=== PATIENT | female | born 1950 | race Caucasian/White ===

== ENCOUNTER 2018-12-10 15:20 | Inpatient (IN) | payer MEDICARE ==
[2018-12-10] MEDS ORDERED: Diltiazem 125 MG/25 ML ONE (15:36)
[2018-12-10] MEDS ORDERED: Magnesium 2 GM/50 ML BAG (IN WATER) ONE (15:38)
[2018-12-10] MEDS ORDERED: Aspirin Chewable 81 MG TAB ONE (15:38)
[2018-12-10 15:47] LABS: #Basophils 0.1 thou/uL (0.0-0.2); #Eosinphils 0.2 thou/uL (0.0-0.7); #Lymphocytes 2.3 thou/uL (1.20-3.40); #Monocytes 0.6 thou/uL (0.11-0.59); %Basophils 1.3 % (0.0-1.0); %Eosinophils 2.3 % (0.0-10.0); %Lymphocytes 28.4 % (21.0-51.0); %Monocytes 7.3 % (0.0-10.0); %Neutrophils 60.7 % (42.0-75.0); Mean Corpuscular HGB CONC 33.1 g/dL (32.0-36.0); Mean Corpuscular Hemoglobin 31.4 pg (27.0-31.0); Mean Platelet Volume 7.7 fL (7.4-10.4); Platelet Count 281 thou/uL (130-400); RBC Distribution Width 12.2 % (11.5-14.5); Red Blood Cell (RBC) Count 4.47 mill/uL (4.20-5.40); White Blood Cell (WBC) Count 8.2 thou/uL (4.8-10.8)
[2018-12-10 15:53] LABS: INR-International Normal Ratio 1.2; PTT 33.9 SEC (22.9-36.1); Prothrombin Time 14.8 SEC (12.0-14.7)
--- NOTE | 2018-12-10 16:00 | RAD ---
Chest one view HISTORY: Chest pain. FINDINGS: No comparison. Cardiac silhouette is magnified and upper limits of normal in size. Pulmonar y vasculature upper limits of normal. Mediastinum is midline. Mild linear ptosis of the right lung base with elevation right hemidiaphragm. Cause is not evident. No lobar consolidation or evidence of pneumothorax. IMPRESSION: Chronic-type findings as detailed above. No active cardiopulmonary abnormalities are demo nstrated.
[2018-12-10 16:06] LABS: ALT (SGPT) 13 U/L (8-55); AST (SGOT) 20 U/L (5-34); Albumin 4.1 g/dL (3.4-4.8); Alkaline Phosphatase 121 U/L (40-150); Anion Gap 11 mmol/L (10-20); BUN (Urea Nitrogen) 9 mg/dL (9.8-20.1); Bilirubin, Total 0.9 mg/dL (0.2-1.2); CK (CPK) 220 U/L (29-168); Calc. Creatinine Clearance 0 mL/min (70-130); Calcium 9.9 mg/dL (7.8-10.44); Carbon Dioxide 29 mmol/L (23-31); Chloride 96 mmol/L (98-107); Estimated GFR-MDRD 79; Globulin 3.2 g/dL (2.4-3.5); Glucose 115 mg/dL (80-115); Lipase 11 U/L (8-78); Potassium 3.4 mmol/L (3.5-5.1); Protein, Total 7.3 g/dL (6.0-8.3); Sodium 133 mmol/L (136-145)
[2018-12-10] MEDS ORDERED: Ondansetron PF 4 MG/2 ML Vial IVP PRN (17:15)
[2018-12-10] MEDS ORDERED: Zolpidem Tartrate 5 MG TAB PO PRN (17:15)
--- NOTE | 2018-12-10 17:24 | PDOC.EVN ---
Event Note - Event Note Event Note: H&P DICTATION #[id number]
[2018-12-10 19:50] LABS: Troponin I Less than 0.010 ng/mL (< 0.028)
[2018-12-10 20:49] VITALS: BMI 33.6
[2018-12-10] MEDS: Metoprolol Tartrate 50 MG TAB PO SCH (21:01)
[2018-12-10] MEDS: Enoxaparin Sodium 100 MG/ML SYRINGE SC SCH (21:02)
[2018-12-10] MEDS: Acetaminophen 325 MG TAB PO PRN (23:19)
--- NOTE | 2018-12-11 00:14 | HP ---
CHIEF COMPLAINT: Sent in by county treasurer. HISTORY OF PRESENT ILLNESS: This is a 68-year-old female who recently saw her county treasurer today and was found to be in atrial fibrillation, persistent. She was in [place] for the of her granddaughter that is when she was diagnosed with atrial fibrillation. The patient comes in, sent from her county treasurer's office. The patient apparently had an echocardiogram done at the office as well as recent stress test a week ago. The patient denies any symptoms or complaints. No nausea, vomiting, diarrhea, constipation, chest pain, fevers, chills, or shortness of breath. The patient does admit to occasional palpitations, which are now better. The patient states that she otherwise has no other complaints. No alleviating or aggravating factors. No other associated symptoms or complaints. The patient is seen and examined in the ER, family at bedside. All questions answered. REVIEW OF SYSTEMS: All systems reviewed, pertinent positives in HPI. ALLERGIES: NO KNOWN DRUG ALLERGIES. PAST MEDICAL HISTORY: Hypothyroidism, hypertension, and paroxysmal atrial fibrillation. FAMILY HISTORY: Hypothyroidism and atrial fibrillation. SOCIAL HISTORY: Nondrinker, nonsmoker. PHYSICAL EXAMINATION: VITAL SIGNS: Blood pressure 128/88, heart rate of 96, temperature of 98, O2 saturations 100% on room air. GENERAL: The patient lying in bed, in no acute discomfort. HEENT: Pupils are equal, round, and reactive to light and accommodation. Extraocular muscles are intact. Oral cavity is moist and pink. NECK: Supple, mobile, nontender. Thyroid appreciated. PULMONARY: Clear to auscultation bilaterally. No rales, rhonchi, or wheezing appreciated. CARDIOVASCULAR: Regular rate and rhythm. S1 and S2. No murmurs, rubs, or gallops appreciated. ABDOMEN: Positive bowel sounds. Soft, nontender, nondistended. EXTREMITIES: Trace pitting edema. 2+ peripheral pulses. NEUROLOGIC: Cranial nerves 2 through 12 intact. No loss of motor or sensory function. LABORATORY DATA: Reviewed. EKG reviewed. ASSESSMENT AND PLAN: 1. Persistent paroxysmal atrial fibrillation. 2. Hypertension. 3. Hypothyroidism. PLAN: At this point in time, we will admit the patient to internal medicine team to inpatient setting. Consult Cardiology. The patient has had a significant amount of a recent cardiac workup, so we will hold off on any repeat studies for now. We will repeat a TSH as well as her troponin is to be trended. We will start the patient on full-dose Lovenox. The patient states that she is on a blood thinner that she cannot remember the name of, so for now, we will do Lovenox 1 mg/kg treatment dose for atrial fibrillation. Consult Cardiology. We will await input on Cardizem drip, which was required. For now, we will continue the Cardizem drip. We will likely switch over tomorrow if able to remove off the drip. We will also start the patient on metoprolol 50 b.i.d. to be held if systolic less than 120 or heart rate less than 60. The patient's case and plan were discussed with the patient and family at length. They understood and agreed with this plan. We will resume home medications once they are uploaded. Job ID: [id number]
[2018-12-11] MEDS ORDERED: Cyclobenzaprine 10 MG TAB PO SCH (04:45)
[2018-12-11 06:05] LABS: #Basophils 0.1 thou/uL (0.0-0.2); #Eosinphils 0.3 thou/uL (0.0-0.7); #Lymphocytes 2.5 thou/uL (1.20-3.40); #Monocytes 0.8 thou/uL (0.11-0.59); %Basophils 1.5 % (0.0-1.0); %Lymphocytes 37.2 % (21.0-51.0); %Monocytes 12.1 % (0.0-10.0); %Neutrophils 45.3 % (42.0-75.0); Mean Corpuscular HGB CONC 33.1 g/dL (32.0-36.0); Mean Corpuscular Hemoglobin 32.5 pg (27.0-31.0); Mean Corpuscular Volume 98.3 fL (78.0-98.0); Mean Platelet Volume 7.6 fL (7.4-10.4); Platelet Count 248 thou/uL (130-400); RBC Distribution Width 12.1 % (11.5-14.5); White Blood Cell (WBC) Count 6.7 thou/uL (4.8-10.8)
[2018-12-11 06:18] LABS: Anion Gap 12 mmol/L (10-20); BUN (Urea Nitrogen) 13 mg/dL (9.8-20.1); Calc. Creatinine Clearance 109 mL/min (70-130); Calcium 9.3 mg/dL (7.8-10.44); Carbon Dioxide 26 mmol/L (23-31); Chloride 101 mmol/L (98-107); Estimated GFR-MDRD 86; Glucose 108 mg/dL (80-115); Potassium 3.1 mmol/L (3.5-5.1); Sodium 136 mmol/L (136-145)
[2018-12-11 06:38] LABS: Troponin I Less than 0.010 ng/mL (< 0.028)
[2018-12-11] MEDS: Enoxaparin Sodium 100 MG/ML SYRINGE SC SCH (09:24)
[2018-12-11] MEDS: Metoprolol Tartrate 50 MG TAB PO SCH (09:25)
[2018-12-11] MEDS: Acetaminophen 325 MG TAB PO PRN (09:31)
--- NOTE | 2018-12-11 18:21 | CON ---
DATE OF CONSULTATION: REASON FOR CONSULTATION: Atrial fibrillation. HISTORY OF PRESENT ILLNESS: Ms. Christiansen is a pleasant 68-year-old woman, who was seen and evaluated in the past. She has a history of paroxysmal atrial fibrillation. She recently presented to the office with atrial fibrillation with heart rate in the 110s to 120s. I was out of the office and was instructed by my staff to proceed to the emergency room. She was placed on IV Cardizem briefly. This was discontinued. Heart rate has been controlled on p.o. beta-celeste therapy. Eliquis has been restarted. CURRENT MEDICATIONS: 1. Propranolol. 2. Metoprolol 300 mg q.a.m. 3. Levothyroxine. 4. Fluoxetine. 5. Pantoprazole. 6. Hydrochlorothiazide. 7. Vitamin B12. 8. Potassium. 9. Gabapentin. 10. Calcium. 11. Cyclobenzaprine. PAST MEDICAL HISTORY: Paroxysmal atrial fibrillation, hypertension. PAST SURGICAL HISTORY: Hysterectomy, cholecystectomy, back surgery, knee surgery, neck surgery, hand surgery, . SOCIAL HISTORY: Positive for tobacco use. REVIEW OF SYSTEMS: A 10-point review of systems is reviewed and as above, otherwise negative. PHYSICAL EXAMINATION: GENERAL: Patient is a pleasant woman who is in no acute distress. The patient appears their stated age. VITAL SIGNS: Blood pressure 140/72, pulse 80, temperature 97.6. NEUROLOGIC: The patient is alert and oriented x3 with no focal neurologic deficits. HEENT: Sclerae without icterus. Mouth has moist mucous membranes with normal pallor. NECK: No JVD. Carotid upstroke brisk. No bruits bilaterally. LUNGS: Clear to auscultation with unlabored respirations. BACK: No scoliosis or kyphosis. CARDIAC: Irregularly irregular. ABDOMEN: Soft, nontender, nondistended. No peritoneal signs present. No hepatosplenomegaly. No abnormal striae. EXTREMITIES: 2+ femoral and 2+ dorsalis pedis pulses. No cyanosis, clubbing, or edema. SKIN: No gross abnormalities. PERTINENT LABORATORY DATA: CK and troponin negative. Creatinine 0.68. TSH is 0.0067. IMPRESSION: 1. Atrial fibrillation. 2. Hyperthyroidism. RECOMMENDATIONS: We will resume Eliquis. Heart rate is controlled on metoprolol. Recommendations on hyperthyroidism per primary team and primary physician. Otherwise from my standpoint, given that her LVEF has been normal in addition to rate control. We would recommend close outpatient followup. I have no further recommendations. Job ID: [id number]
--- NOTE | 2018-12-11 18:21 | PDOC.EVN ---
Event Note - Event Note Event Note: pt takes 0.125mg of synthroid. Her TSh is low will decrease her dose to 100mcg and she has been asked to follow up with her primary.
[2018-12-11 18:47] VITALS: BP 140/78; TEMP 98.2
[2018-12-11] MEDS ORDERED: Apixaban 5 MG TAB PO SCH (21:00)
--- NOTE | 2018-12-12 03:21 | DIS ---
DATE OF ADMISSION: 12/10/2018 DATE OF DISCHARGE: 12/11/2018 DISCHARGE DIAGNOSES: As of the following; 1. Persistent paroxysmal atrial fibrillation. 2. Hypertension. 3. Hypothyroidism. HOSPITAL COURSE: The patient is a very pleasant 68-year-old female who was actually sent to the hospital by her green building energy engineer and was found to be in atrial fibrillation with rapid ventricular response. She recently from Cardiology had an echocardiogram done and also a stress test which apparently was normal. The patient prior to coming to the hospital was already started on Eliquis, however, she was not on any kind of rate-controlling agent. The patient in the hospital started initially on Cardizem drip which was changed to oral metoprolol, which improved her heart rate. The patient was seen by Cardiology, no further intervention. The patient clinically has been stable. She will be discharged home. She will follow up with Cardiology as outpatient. DISCHARGE MEDICATIONS: Her home medications on discharge will be as of the following; 1. New prescription metoprolol 50 b.i.d. 2. Eliquis 5 mg b.i.d. 3. Lisinopril 10 mg daily. 4. Hydrochlorothiazide 25 daily. 5. Protonix 40 mg daily. 6. Ropinirole 0.5 daily. 7. Colace 100 mg daily. 8. Flexeril 5 mg t.i.d. p.r.n. 9. Synthroid 0.125 mg daily. 10. Potassium p.o. daily. 11. Cymbalta 60 mg daily. 12. Gabapentin 300 mg daily. PHYSICAL EXAMINATION: VITAL SIGNS: 97.9, 72, 95% on room air, 16, 140/72. GENERAL: She is awake, alert, and oriented x3. Does not appear in distress. CV: S1, S2 present. No murmurs, rubs, or gallops. ABDOMEN: Soft and nontender. Bowel sounds are present x2. EXTREMITIES: No edema. Pedal pulses are present x2. DISCHARGE INSTRUCTIONS: She will be discharged home. She will follow up with her primary care doctor and also with Cardiology as outpatient. Also recommend her to follow up with her primary care doctor. Job ID: [id number]
== END 2018-12-11 20:47 | disposition home or self-care (01) | DRG 310 ==
LOC: ERS 15:20 → 2NO 20:01
PROVIDERS: ADMIT Internal Medicine; ATTEND Internal Medicine
DX: I48.0 Paroxysmal atrial fibrillation (principal); E03.9 Hypothyroidism, unspecified; I10 Essential (primary) hypertension; Z79.899 Other long term (current) drug therapy
CPT/HCPCS: 36415; 71045; 80048; 80053; 82550; 83690; 83880; 84443; 84484; 85025; 85610; 85730; 93005; 94760; J1650; J3475

== ENCOUNTER 2019-07-01 19:30 | Outpatient (CLI) | payer MEDICARE | END 2019-07-01 19:31 | disposition home or self-care (01) | LOC: SLEEPLAB 19:30 | PROVIDERS: ATTEND Internal Medicine Critical Care Medicine | DX: G47.33 Obstructive sleep apnea (adult) (pediatric) (principal); I21.9 Acute myocardial infarction, unspecified; G47.10 Hypersomnia, unspecified; R25.9 Unspecified abnormal involuntary movements | CPT/HCPCS: 95810 ==

== ENCOUNTER 2019-07-24 08:53 | Outpatient (CLI) | payer MEDICARE ==
--- NOTE | 2019-07-24 10:25 | RAD ---
PA AND LATERAL CHEST: HISTORY: Dyspnea. COMPARISON: 12/10/2018 FINDINGS: There is continued elevation of the right hemidiaphragm. The heart size is at the upper limits of nor mal. The aorta is tortuous. There is mild prominence of the pulmonary vascularity. No lobar consolida tion, pneumothoraces or pleural effusions are seen. There are postop changes in the cervical and thor acolumbar spine. POS: JENNIFER
== END 2019-07-24 08:54 | disposition home or self-care (01) ==
LOC: RAD 08:53
PROVIDERS: ATTEND Internal Medicine Critical Care Medicine
DX: R06.00 Dyspnea, unspecified (principal)
CPT/HCPCS: 71046

== ENCOUNTER 2019-09-16 07:04 | Day surgery (SDC) | payer MEDICARE ==
[2019-09-13 13:19] VITALS: BMI 31.8
[2019-09-16] MEDS ORDERED: Diazepam 5 MG TAB ONE (07:15)
[2019-09-16] MEDS ORDERED: Verapamil 5 MG/2 ML VIAL ONE (07:58)
[2019-09-16] MEDS ORDERED: Lidocaine 1% (PF) 30 ML VIAL ONE (07:58)
[2019-09-16] MEDS ORDERED: Heparin (Artline) 1,000 ML ONE (07:58)
[2019-09-16] MEDS ORDERED: Nitroglycerin 100MG/250ML BOT 250 ML ONE (07:58)
[2019-09-16] MEDS ORDERED: Heparin 10,000 UNITS/1 ML VIAL ONE (07:58)
[2019-09-16] MEDS ORDERED: hydrALAZINE 20 MG/ML VIAL ONE (08:41)
[2019-09-16] MEDS ORDERED: Morphine 2 MG/ML SYRINGE ONE (09:53)
[2019-09-16] MEDS ORDERED: Nitroglycerin 0.4 MG TAB (25 Tab Bottle) ONE (10:30)
[2019-09-16] MEDS ORDERED: Iopamidol 370 76% 100 ML VIAL ONE (15:15)
== END 2019-09-16 13:05 | disposition home or self-care (01) ==
LOC: CCL 07:04
PROVIDERS: ATTEND Internal Medicine Cardiovascular Disease
PROC: 4A023N7 Measurement of Cardiac Sampling and Pressure, Left Heart, Percutaneous Approach (ICD-10-PCS; principal; 2019-09-16)
PROC: B2111ZZ Fluoroscopy of Multiple Coronary Arteries using Low Osmolar Contrast (ICD-10-PCS; 2019-09-16)
DX: R07.9 Chest pain, unspecified (principal); R94.39 Abnormal result of other cardiovascular function study; I10 Essential (primary) hypertension; I48.91 Unspecified atrial fibrillation; I83.813 Varicose veins of bilateral lower extremities with pain; F17.210 Nicotine dependence, cigarettes, uncomplicated; Z79.01 Long term (current) use of anticoagulants; Z79.899 Other long term (current) drug therapy
CPT/HCPCS: 93005; 93458; C1769; J0360; J1644; J2001; J2270; Q9967

== ENCOUNTER 2020-02-26 06:23 | Outpatient (CLI) | payer MEDICARE, OTHER ==
[2020-02-27 14:39] LABS: SARS-CoV-2 MS2 Positive; SARS-CoV-2 N Gene Negative; SARS-CoV-2 S Gene Negative; SARS-CoV-2 orf1ab Negative
== END 2020-02-26 06:24 | disposition home or self-care (01) ==
LOC: LABBT 06:23
PROVIDERS: ATTEND Internal Medicine Cardiovascular Disease
DX: Z01.812 Encounter for preprocedural laboratory examination (principal); Z11.59 Encounter for screening for other viral diseases
CPT/HCPCS: 87635; U0003

== ENCOUNTER 2020-03-02 10:03 | Day surgery (SDC) | payer MEDICARE ==
[2020-02-24 15:33] VITALS: BMI 38.9
[~2020-03-02 10:03] MED LIST: Glycopyrrolate 0.2 MG/ML 5 ML SYRINGE ONE; Lidocaine 1% PF 5 ML VIAL ONE; PROPOFOL 200 MG/20 ML VIAL ONE
--- NOTE | 2020-03-03 14:05 | OP ---
DATE OF PROCEDURE: 03/02/2020 PREPROCEDURE DIAGNOSIS: Atrial fibrillation. POSTPROCEDURE DIAGNOSIS: Sinus rhythm. PROCEDURE PERFORMED: Synchronized cardioversion. Conscious sedation performed with propofol. Anesthesia was present during the procedure. The patient underwent successful synchronized cardioversion at 150, 200 joules. IMPRESSION: Successful synchronized cardioversion. Job ID: [id number]
== END 2020-03-02 13:25 | disposition home or self-care (01) ==
LOC: CCL 10:03
PROVIDERS: ATTEND Internal Medicine Cardiovascular Disease
PROC: 5A2204Z Restoration of Cardiac Rhythm, Single (ICD-10-PCS; principal; 2020-03-02)
DX: I48.19 Other persistent atrial fibrillation (principal); G25.81 Restless legs syndrome; E03.9 Hypothyroidism, unspecified; F17.210 Nicotine dependence, cigarettes, uncomplicated; Z79.01 Long term (current) use of anticoagulants; Z79.899 Other long term (current) drug therapy; Z98.1 Arthrodesis status
CPT/HCPCS: 92960; 93005; 93010; J2704

== ENCOUNTER 2020-04-23 08:53 | Outpatient (CLI) | payer MEDICARE, OTHER ==
[2020-04-23 18:01] LABS: Hemoglobin 13.1 g/dL (12.0-16.0); Mean Corpuscular HGB CONC 32.4 g/dL (32.0-36.0); Mean Corpuscular Hemoglobin 29.3 pg (27.0-31.0); Mean Corpuscular Volume 90.4 fL (78.0-98.0); Platelet Count 326 thou/uL (130-400); RBC Distribution Width 13.6 % (11.5-14.5); Red Blood Cell (RBC) Count 4.45 mill/uL (4.20-5.40); White Blood Cell (WBC) Count 8.5 thou/uL (4.8-10.8)
[2020-04-23 18:08] LABS: PTT 32.3 sec (22.9-36.1); Prothrombin Time 12.8 sec (12.0-14.7)
[2020-04-23 19:24] LABS: Anion Gap 16 mmol/L (10-20); BUN (Urea Nitrogen) 12 mg/dL (9.8-20.1); Calc. Creatinine Clearance 0 mL/min (70-130); Calcium 9.9 mg/dL (7.8-10.44); Carbon Dioxide 27 mmol/L (23-31); Chloride 98 mmol/L (98-107); Estimated GFR-MDRD 69; Potassium 4.4 mmol/L (3.5-5.1); Sodium 137 mmol/L (136-145)
[2020-04-23 19:28] LABS: Glucose 95 mg/dL (83-110)
[2020-04-24 12:45] LABS: SARS-CoV-2 MS2 Positive; SARS-CoV-2 N Gene Negative; SARS-CoV-2 S Gene Negative; SARS-CoV-2 by NAA Not Detected (NotDetected); SARS-CoV-2 orf1ab Negative
--- NOTE | 2020-04-27 15:32 | EKG ---
Test Reason : Blood Pressure : / mmHG Vent. Rate : 081 BPM Atrial Rate : 081 BPM P-R Int : 000 ms QRS Dur : 084 ms QT Int : 382 ms P-R-T Axes : 000 -13 021 degrees QTc Int : 443 ms Atrial fibrillation Abnormal ECG When compared with ECG of 02-MAR-2020 12:21, (Unconfirmed) Atrial fibrillation has replaced Sinus rhythm Vent. rate has increased BY 29 BPM Confirmed by LIZ CA M.D. ([id number]) on 04/27/2020 3:32:08 PM Referred By: [facility] Confirmed By:LIZ CA M.D.
== END 2020-04-23 08:54 | disposition home or self-care (01) ==
LOC: LABBT 08:53
PROVIDERS: ATTEND Internal Medicine Cardiovascular Disease
DX: Z01.818 Encounter for other preprocedural examination (principal); Z20.828 Contact with and (suspected) exposure to other viral communicable diseases
CPT/HCPCS: 80048; 85027; 85610; 85730; 93005; U0003; 87635; 93010

== ENCOUNTER 2020-04-27 08:27 | Observation (INO) | payer MEDICARE ==
[2020-04-23 12:51] VITALS: BMI 36.3
[~2020-04-27 08:27] MED LIST changes: -Lidocaine 1% PF 5 ML VIAL ONE; -PROPOFOL 200 MG/20 ML VIAL ONE
[2020-04-27] MEDS ORDERED: PROPOFOL 40 ML ONE (10:47)
[2020-04-27] MEDS ORDERED: Heparin 25,000 units/D5W 500 ML ONE (11:40)
[2020-04-27] MEDS ORDERED: Heparin 10,000 UNITS/ 10 ML VIAL ONE ×2 (11:40→12:45)
[2020-04-27] MEDS ORDERED: Lidocaine 1% (PF) 30 ML VIAL ONE (11:41)
[2020-04-27] MEDS ORDERED: Fentanyl 100 MCG/2 ML VIAL ONE ×3 (11:58→18:06)
[2020-04-27] MEDS ORDERED: Dexamethasone 20 MG/5 ML VIAL ONE (11:59)
[2020-04-27] MEDS ORDERED: Glycopyrrolate 0.2 MG/ML 5 ML SYRINGE ONE (11:59)
[2020-04-27] MEDS ORDERED: Rocuronium Bromide 10 MG/ML (10ML VIAL) ONE (11:59)
[2020-04-27] MEDS ORDERED: Ondansetron PF 4 MG/2 ML Vial ONE (11:59)
[2020-04-27] MEDS ORDERED: PHENYLEPHRINE-NS 100 MCG/ML 10 ML SYRINGE ONE ×2 (11:59→15:17)
[2020-04-27] MEDS ORDERED: Lidocaine 1% PF 5 ML VIAL ONE (11:59)
[2020-04-27] MEDS ORDERED: PROPOFOL 200 MG/20 ML VIAL ONE (11:59)
[2020-04-27] MEDS ORDERED: Isoproterenol 0.2 MG/1 ML AMP ONE (13:58)
[2020-04-27] MEDS ORDERED: Amiodarone 150 MG/3 ML VIAL ONE (15:19)
[2020-04-27] MEDS ORDERED: Protamine Sulfate 50 MG/5 ML VIAL ONE (15:32)
[2020-04-27] MEDS ORDERED: Ketorolac Tromethamine 30 MG/ML VIAL ONE (16:37)
[2020-04-27] MEDS ORDERED: Acetaminophen/Codeine 30-300mg Tablet PO PRN ×2 (18:30)
--- NOTE | 2020-04-27 19:35 | RAD ---
PORTABLE CHEST: Date: 04-27-2020 PROVIDED CLINICAL HISTORY: Post ablation FINDINGS: Comparison is made with a study dated 07-24-19. The cardiac silhouette appears enlarged. There is elevation of the right hemidiaphragm which appears more conspicuous than on prior. The supine nature of the examination is not sensitive for pleural flu id or pneumothorax, without evidence for such. No focal consolidation is evident. IMPRESSION: Elevation of the right hemidiaphragm is more conspicuous than on prior. Cardiomegaly. POS: FLAKITA
[2020-04-27] MEDS: Ketorolac Tromethamine 30 MG/ML VIAL IVP PRN (20:02)
--- NOTE | 2020-04-27 20:02 | OP ---
DATE OF PROCEDURE: 04/27/2020 PROCEDURE PERFORMED: Electrophysiology study and radiofrequency ablation. REASON FOR PROCEDURE: Ms. Christiansen is a 69-year-old female with prior history of persistent atrial fibrillation, resistant to initiated flecainide therapy. She is here for a planned pulmonary venous isolation and ablation procedure. She has been well anticoagulated with NOAC medication without fail over last month. DESCRIPTION OF PROCEDURE: The patient received general anesthesia by Anesthesia specialist. After adequate level of sedation achieved, both femoral venous areas were prepped, draped, and accessed under ultrasound guidance x2. On the left side, an 11-[place]izen [place] sheath was used to advance an intracardiac echocardiogram probe to the right atrium, which was in turn used to monitor the transeptal puncture, pericardial space, and the catheter manipulation throughout the procedure. Also, through the left femoral vein, a Preface sheath was used to advance a Duo-Deca diagnostic catheter into the right atrium and CS position. From the right femoral vein, two 8-[place]izen [place] short sheaths were initially introduced, through which a ThermoCool SFST catheter was advanced to the right atrium and 3D map of the right atrium was obtained. Following that, IV heparin was administered in bolus and drip fashion and adjusted throughout the case to keep ACT over 350. The short right femoral venous sheaths were exchanged to two SL1 transseptal sheaths, which were used to perform a transseptal puncture with the help of a powered [place] needle under ultrasound and fluoroscopic guidance. The 3D map of the left atrium was obtained with the help of a ThermoCool SFST and a 20-pole Lasso catheter. It was determined that the patient has a left common pulmonary vein, two right-sided pulmonary veins were identified. Standard pulmonary venous isolation was performed, isolating the left common vein in a single nez perce and right pulmonary veins with figure-eight ablation lines. Also a roof and inferoposterior line were also ablated to achieve posterior wall isolation. Throughout the posterior wall crockett, special attention was paid to the esophagus to minimize the heat injury and any heating was met with high-flow irrigation from the ablation catheter. Following this, isolation of posterior wall and all pulmonary veins was achieved despite the patient remained in atrial fibrillation. Further mapping on the inferior wall and the CS roof, significant fractionated potentials were found and further ablation were delivered in these areas, isolating the inferior wall, also ablations were placed over the CS roof. Ablation was performed in the inferior interatrial septum as well. During the case, multiple circuit flutters were seen by overdrive pace mapping. Eventually, these flutters were converted to atrial fibrillation and the patient was cardioverted to sinus rhythm. Further atrial fibrillation/flutter induced with a PAC which appeared to be initiating from the CS 1 and 2 earliest and the radiofrequency ablation was delivered in this area. IV amiodarone was also administered x1 to suppress atrial fibrillation. Moderate atrial scarring was seen with the procedure. At the end of the case, the patient remained in sinus rhythm and rare PACs were seen, and overall, the patient remained stable. Intracardiac echocardiogram probe proved no pericardial space accumulation of fluid and then also the cardiac silhouette did not change on fluoroscopy. The catheter was withdrawn from the left side and IV heparin was stopped and they were reversed with protamine. The long sheaths were exchanged for short sheaths and Vascade closure was performed with a vascular ultrasound guidance in all four femoral venous access site. The patient left the recyclable materials sorter extubated. Following numerical findings were noted. The HV was 54 milliseconds. AV Wenckebach cycle length was 440 milliseconds, on Isuprel. The AV gagan ERP on Isuprel was 400/180 milliseconds. The ventricular pacing from the LV was performed via the ablation catheter, demonstrating no VA conduction. Aberrantly conducted PACs were seen during extrastimuli testing. CONCLUSION: 1. Atrial fibrillation at baseline. 2. Standard pulmonary venous isolation of left common pulmonary vein and two right-sided pulmonary veins were performed. 3. Posterior wall isolation with the roof and inferoposterior line also achieved. 4. Further ablation lesions in the inferior left atrium as well as the inferoseptal area of left atrium were delivered, also over the CS roof extensively. 5. Total of 87 lesions delivered, total duration of 28 minutes and 55 seconds. PLAN: Resume anticoagulation and consider antiarrhythmic agents if recurrent atrial arrhythmias occur. Job ID: [id number]
[2020-04-27] MEDS: Morphine 4 MG/ML VIAL SLOW IVP PRN (20:56)
[2020-04-27] MEDS ORDERED: Rivaroxaban 10 MG TAB PO SCH (21:00)
[2020-04-27] MEDS ORDERED: NYQUIL PO SCH (21:00)
[2020-04-27] MEDS ORDERED: rOPINIRole HCl 0.5 MG TAB PO SCH (21:00)
[2020-04-27] MEDS ORDERED: Famotidine 20 MG TAB PO SCH (21:00)
[2020-04-28] MEDS: Morphine 4 MG/ML VIAL SLOW IVP PRN ×4 (00:33→15:15)
[2020-04-28] MEDS: Cephalexin 250 MG CAP PO SCH ×2 (05:05→10:07)
[2020-04-28] MEDS: Gabapentin 300 MG CAP PO SCH ×3 (05:06→15:15)
[2020-04-28] MEDS: Sucralfate 1 GM TAB PO SCH ×2 (05:06→05:49)
[2020-04-28] MEDS ORDERED: Levothyroxine Sodium 100 MCG TAB PO SCH (06:00)
[2020-04-28] MEDS: Ketorolac Tromethamine 30 MG/ML VIAL IVP PRN (08:12)
[2020-04-28] MEDS ORDERED: Calcium Carbonate 600 MG + Vit D TAB PO SCH (09:00)
[2020-04-28] MEDS ORDERED: Amlodipine 5 MG TAB PO SCH (09:00)
[2020-04-28] MEDS ORDERED: Cyanocobalamin (Vitamin B-12) 1,000 MCG TAB PO SCH (09:00)
[2020-04-28] MEDS ORDERED: Lisinopril 20 MG TAB PO SCH (09:00)
[2020-04-28] MEDS ORDERED: Hydrochlorothiazide 25 MG TAB PO SCH (09:00)
[2020-04-28] MEDS ORDERED: Multivit, Therapeutic 1 TAB PO SCH (09:00)
[2020-04-28] MEDS ORDERED: DULoxetine 60 MG CAP PO SCH (09:00)
[2020-04-28] MEDS ORDERED: Potassium Chloride 10 MEQ TAB PO SCH (09:00)
[2020-04-28] MEDS ORDERED: Lidocaine 1% w/Epinephrine 1:100K 20 ML VIAL IJ SCH (09:43)
[2020-04-28] MEDS ORDERED: Furosemide 40 MG TAB PO SCH (10:00)
[2020-04-28] MEDS ORDERED: Potassium Chloride 20 MEQ TAB PO SCH (10:00)
[2020-04-28] MEDS ORDERED: Sucralfate 1 GM TAB PO SCH (11:30)
[2020-04-28 15:51] VITALS: BP 126/72; TEMP 97.5
[2020-04-29] MEDS ORDERED: Potassium Chloride 20 MEQ TAB PO SCH (08:00)
[2020-04-29] MEDS ORDERED: Furosemide 40 MG TAB PO SCH (09:00)
--- NOTE | 2020-04-30 01:59 | DIS ---
DATE OF ADMISSION: 04/27/2020 DATE OF DISCHARGE: 04/28/2020 DIAGNOSIS: Persistent atrial fibrillation. PROCEDURE PERFORMED: Included electrophysiology study and radiofrequency ablation. HISTORY OF PRESENT ILLNESS: Ms. Christiansen is a 69-year-old woman, with a history of persistent atrial fibrillation refractory to flecainide. She underwent pulmonary venous isolation ablation on 04/27. Successful pulmonary venous isolation of the left common pulmonary vein and two right-sided pulmonary veins in addition to posterior wall isolation and inferior posterior line achieved. Additional lesions placed to the inferior left atrium and inferior septal area of the left atrium. Total ablation 29 minutes. Moderate atrial scarring was seen within the procedure. She was in sinus rhythm at the end of the case. Aberrant conduction of PACs was seen during extrastimuli testing. Ms. Christiansen had some persistent superficial oozing of the left 11-[place] sheaths site overnight and into the morning of the next day. This required subcutaneous lidocaine with epinephrine injection, which quickly terminated the bleeding complication. No further bleeding was seen. There was no evidence of hematoma or deep vessel bleeding complication. She also endorsed some back pain which she has chronically struggled with and some chest discomfort. She denied any shortness of breath, heart racing, palpitations, dizziness, difficulty voiding, nausea or vomiting. Peripheral pulses remained strong. She did have some crackles to the right lung anthony and some trace pedal edema, otherwise exam is stable. She was discharged in stable condition in the afternoon after observing her peripheral pulses and groin sites for 4 hours after the lido with epi injection. Vital signs prior to discharge, 97.5, pulse 88, blood pressure 126/71, respirations 18, and oxygen 94% on room air. DISCHARGE MEDICATIONS: 1. Resuming home medications of Toprol-XL 25 mg daily. 2. Ropinirole 1 mg one tab at bedtime. 3. Xarelto 20 mg q.p.m. with meal. 4. Potassium daily. 5. Protonix 40 mg daily. 6. NyQuil at bedtime p.r.n. 7. Multivitamin daily. 8. Lisinopril 20 mg daily. 9. Synthroid daily. 10. Hydrochlorothiazide 25 mg daily. 11. Gabapentin 300 mg t.i.d. 12. at bedtime p.r.n. 13. Cymbalta 60 mg daily. 14. Calcium with vitamin D daily. 15. Vitamin B12 daily. 16. Amlodipine 2.5 mg daily. New prescriptions provided for Carafate 1 g q.i.d. x2 weeks, Protonix 40 mg daily x30 days, Lasix 40 mg daily x3 days, then p.r.n. to be taken with K-Dur 20 mEq. Discontinued medications, flecainide. DISCHARGE INSTRUCTIONS: Follow up in six weeks. Contact TCA with any postablation concerns. Light activity for one week with no soaking baths, no heavy lifting and no driving until bilateral groin sites are well healed. Job ID: [id number]
== END 2020-04-28 18:00 | disposition home or self-care (01) ==
LOC: CCL 08:27 → 2SW 15:49
PROVIDERS: ADMIT Internal Medicine Cardiovascular Disease; ATTEND Internal Medicine Cardiovascular Disease
PROC: 4A023FZ Measurement of Cardiac Rhythm, Percutaneous Approach (ICD-10-PCS; principal; 2020-04-27)
PROC: 4A0234Z Measurement of Cardiac Electrical Activity, Percutaneous Approach (ICD-10-PCS; 2020-04-27)
PROC: 02583ZZ Destruction of Conduction Mechanism, Percutaneous Approach (ICD-10-PCS; 2020-04-27)
PROC: 02K83ZZ Map Conduction Mechanism, Percutaneous Approach (ICD-10-PCS; 2020-04-27)
DX: I48.19 Other persistent atrial fibrillation (principal); I25.10 Atherosclerotic heart disease of native coronary artery without angina pectoris; I10 Essential (primary) hypertension; E03.9 Hypothyroidism, unspecified; E66.9 Obesity, unspecified; F17.210 Nicotine dependence, cigarettes, uncomplicated; G25.81 Restless legs syndrome; Z68.36 Body mass index [BMI] 36.0-36.9, adult; Z79.01 Long term (current) use of anticoagulants; Z79.899 Other long term (current) drug therapy
CPT/HCPCS: 71045; 76942; 85347; 92960; 93005; 93613; 93623; 93655; 93656; 93662; C1732 ×3; C1759; C1884; 96374; 96375; 96376; G0378; J0282; J1644; J1885; J2001; J2270; J2704; J2720; J3010

== ENCOUNTER 2020-08-05 14:02 | Outpatient (CLI) | payer MEDICARE | END 2020-09-07 14:02 | disposition home or self-care (01) | LOC: BICMAMMO 14:02 | PROVIDERS: ATTEND Family Medicine | DX: Z12.31 Encounter for screening mammogram for malignant neoplasm of breast (principal) | CPT/HCPCS: 77063; 77067 ==

== ENCOUNTER 2020-08-05 14:15 | Outpatient (CLI) | payer MEDICARE ==
--- NOTE | 2020-08-05 19:05 | CT ---
CTA HEAD WITH AND WITHOUT CONTRAST: CTA NECK WITH CONTRAST: 08/05/20 CT head performed with and without contrast. Postcontrast images obtained with angio protocol with mu ltiplanar reconstruction and 3D postprocessing. CTA neck performed with IV contrast with multiplanar reconstruction and 3D postprocessing. INDICATIONS: Headache. Visual disturbance. CT HEAD WITHOUT CONTRAST: The ventricles have normal size and position. No evidence of intracranial mass or hemorrhage. No evid ence of cortical infarct. The paranasal sinuses and mastoids are clear. IMPRESSION: Unremarkable noncontrast head CT. CTA HEAD: The intracranial internal carotid arteries are patent and symmetric. Cavernous ICAs are patent and sy mmetric with no stenosis. Anterior cerebral arteries, middle cerebral arteries, and posterior cerebral arteries appear patent a nd symmetric. Basilar artery is patent. IMPRESSION: Unremarkable CTA head. CTA NECK: No stenosis at the origin of the arch vessels. Common carotid arteries are patent and symmetric. Mild atherosclerotic change seen in both bulbs. However, no stenosis seen in either extracranial inte rnal carotid artery. Both extracranial internal carotid arteries are mildly tortuous. The vertebral arteries are patent and symmetric. Review of soft tissues reveal numerous bilateral cervical chain lymph nodes seen at levels I, II, III and IV. Level II lymph nodes measure up to 2 cm in the axial plane. No evidence of significant thyroid tissue identified. Parotid glands and submandibular glands unremar kable. IMPRESSION: 1. Unremarkable CTA neck with mild atherosclerotic change in the bulbs. 2. Nonspecific bilateral cervical chain adenopathy. Recommend clinical correlation and consider further workup as indicated. POS: LUDWIN
== END 2020-08-05 14:16 | disposition home or self-care (01) ==
LOC: BICCT 14:15
PROVIDERS: ATTEND Family Medicine
DX: R51.9 Headache, unspecified (principal); R26.89 Other abnormalities of gait and mobility; H54.7 Unspecified visual loss; I65.23 Occlusion and stenosis of bilateral carotid arteries; R59.0 Localized enlarged lymph nodes
CPT/HCPCS: 70496; 70498; 82565

== ENCOUNTER 2020-12-14 13:38 | Inpatient (IN) | payer MEDICARE ==
[2020-12-14 14:20] LABS: #Basophils 0.1 thou/uL (0.0-0.2); #Eosinphils 0.1 thou/uL (0.0-0.7); #Lymphocytes 1.4 thou/uL (1.20-3.40); #Monocytes 0.6 thou/uL (0.11-0.59); #Neutrophils 4.8 thou/uL (1.40-6.50); %Basophils 1.4 % (0.0-1.0); %Eosinophils 1.3 % (0.0-10.0); %Lymphocytes 20.6 % (21.0-51.0); %Monocytes 8.8 % (0.0-10.0); Hemoglobin 7.2 g/dL (12.0-16.0); Mean Corpuscular Hemoglobin 22.2 pg (27.0-31.0); Mean Corpuscular Volume 71.5 fL (78.0-98.0); Mean Platelet Volume 7.3 fL (7.4-10.4); Platelet Count 447 thou/uL (130-400); RBC Distribution Width 17.7 % (11.5-14.5); Red Blood Cell (RBC) Count 3.23 mill/uL (4.20-5.40)
[2020-12-14 14:39] LABS: ALT (SGPT) 9 U/L (8-55); AST (SGOT) 16 U/L (5-34); Alkaline Phosphatase 98 U/L (40-110); Anion Gap 13 mmol/L (10-20); BUN (Urea Nitrogen) 10 mg/dL (9.8-20.1); Bilirubin, Total 0.7 mg/dL (0.2-1.2); Calc. Creatinine Clearance 0 mL/min (70-130); Calcium 9.2 mg/dL (7.8-10.44); Carbon Dioxide 26 mmol/L (23-31); Chloride 91 mmol/L (98-107); Glucose 134 mg/dL (83-110); Potassium 3.4 mmol/L (3.5-5.1); Sodium 127 mmol/L (136-145)
[2020-12-14 14:42] LABS: Anisocytosis SLIGHT = 6-15 cells (100X) (0-5/hpf); Elliptocytes SLIGHT = 2-5 cells (100X) (0-1/hpf); Hypochromia SLIGHT = 6-15 cells (100X) (0-5/hpf); MDiff Complete? YES; Microcytosis SLIGHT = 6-15 cells (100X) (0-5/hpf); Platelet Morphology Comment Appears Increased; Polychromasia SLIGHT = 2-3 cells (100X) (0-2/hpf); Target Cells SLIGHT = 2-5 cells (100X) (0-1/hpf)
[2020-12-14 15:20] LABS: INR-International Normal Ratio 1.3; PTT 39.1 sec (22.9-36.1)
[2020-12-14] MEDS ORDERED: Pantoprazole 80 MG, Admixture Fee 1 EACH in Sodium Chloride 0.9% 100 ML IVPB SCH (16:00)
[2020-12-14] MEDS ORDERED: Ondansetron ODT 4 MG TAB PO PRN (16:34)
[2020-12-14 18:23] LABS: Bacteria/HPF None Seen HPF (None Seen); Bilirubin Negative (Negative); Blood, Urine Negative (Negative); Clarity Clear (Clear); Glucose, Urine (Dipstick) Normal (Negative); Ketone, Urine Negative (Negative); Leukocyte Negative Leu/uL (Negative); Nitrite Negative (Negative); Protein, Urine (Dipstick) 10 mg/dL (Neg-Trace); RBC/HPF 0-3 HPF (0-3); Specific Gravity, Urine 1.015 (1.002-1.036); Squamous Epithelial 0-3 HPF (0-3); Urobilinogen Normal mg/dL (Less than 2); WBC/HPF 0-3 HPF (0-3)
[2020-12-14 18:23] LABS: Bilirubin Negative (Negative); Blood, Urine Negative (Negative); Clarity Clear (Clear); Glucose, Urine (Dipstick) Normal (Negative); Ketone, Urine Negative (Negative); Leukocyte Negative Leu/uL (Negative); Nitrite Negative (Negative); Protein, Urine (Dipstick) 10 mg/dL (Neg-Trace); Specific Gravity, Urine 1.015 (1.002-1.036); Urobilinogen Normal mg/dL (Less than 2)
[2020-12-14 18:43] LABS: Reticulocyte Count 1.9 % (0.5-1.5)
[2020-12-14 18:51] LABS: Troponin I Less than 0.010 ng/mL (< 0.028)
[2020-12-14 18:53] LABS: Iron 19 ug/dL (50-170); Iron Binding Capacity, Total 473 mcg/dL (265-497)
[2020-12-14 19:12] LABS: Ferritin 6.04 ng/mL (10-291)
[2020-12-14] MEDS ORDERED: Iron, Sodium Ferric Gluconate 250 MG in Sodium Chloride 0.9% 250 ML 250 ML IVPB SCH ×2 (20:00→22:00)
[2020-12-14] MEDS ORDERED: cefTRIAXone\\ROCEPHIN 1 GM in Sodium Chloride 0.9% 100 ML IVPB SCH (21:00)
[2020-12-14] MEDS: Azithromycin 500 MG in Sodium Chloride 0.9% 250 ML 250 ML IVPB SCH (22:02)
[2020-12-14] MEDS ORDERED: diphenhydrAMINE 25 MG CAP PO PRN (22:25)
[2020-12-14] MEDS: Acetaminophen 325 MG TAB PO PRN (23:13)
[2020-12-14 23:45] LABS: BUN (Urea Nitrogen) 7 mg/dL (9.8-20.1); Calc. Creatinine Clearance 131 mL/min (70-130); Calcium 8.5 mg/dL (7.8-10.44); Carbon Dioxide 23 mmol/L (23-31); Glucose 133 mg/dL (83-110)
[2020-12-15 00:59] LABS: Chloride 95 mmol/L (98-107); Potassium 3.3 mmol/L (3.5-5.1); Sodium 129 mmol/L (136-145)
[2020-12-15 01:26] LABS: Anion Gap 14 mmol/L (10-20)
[2020-12-15] MEDS ORDERED: Morphine 4 MG/ML VIAL ONE (02:07)
[2020-12-15] MEDS ORDERED: Aspirin 325 MG TAB ONE (02:11)
[2020-12-15] MEDS: Ondansetron PF 4 MG/2 ML Vial IVP PRN (02:12)
[2020-12-15] MEDS ORDERED: Doxycycline 100 MG in Syringe 0 ML IVPB SCH (02:20)
[2020-12-15 02:30] LABS: Hemoglobin 11.5 g/dL (12.0-16.0)
[2020-12-15 02:37] LABS: ALT (SGPT) Less than 7 U/L (8-55); AST (SGOT) 16 U/L (5-34); Albumin 3.3 g/dL (3.4-4.8); Alkaline Phosphatase 85 U/L (40-110); Anion Gap 14 mmol/L (10-20); BUN (Urea Nitrogen) 8 mg/dL (9.8-20.1); Bilirubin, Total 0.7 mg/dL (0.2-1.2); Calc. Creatinine Clearance 119 mL/min (70-130); Calcium 8.3 mg/dL (7.8-10.44); Carbon Dioxide 22 mmol/L (23-31); Chloride 95 mmol/L (98-107); Globulin 2.6 g/dL (2.4-3.5); Glucose 127 mg/dL (83-110); Potassium 3.6 mmol/L (3.5-5.1); Protein, Total 5.9 g/dL (5.8-8.1); Sodium 127 mmol/L (136-145)
[2020-12-15] MEDS ORDERED: Piperacillin/Tazobactam 3.375 GM in Sodium Chloride 0.9% 100 ML IVPB SCH ×2 (02:45→12:00)
[2020-12-15] MEDS ORDERED: Sodium Chloride 0.9% 1,000 ML IV SCH ×2 (03:15→04:15)
[2020-12-15] MEDS ORDERED: Morphine 4 MG/ML VIAL SLOW IVP SCH (04:00)
[2020-12-15 05:34] LABS: SARS-CoV-2 PCR by NAA Not Detected (NotDetected)
[2020-12-15 05:39] LABS: Anion Gap 12 mmol/L (10-20); BUN (Urea Nitrogen) 8 mg/dL (9.8-20.1); CK (CPK) 126 U/L (29-168); Calc. Creatinine Clearance 104 mL/min (70-130); Carbon Dioxide 18 mmol/L (23-31); Chloride 103 mmol/L (98-107); Glucose 150 mg/dL (83-110); Magnesium 1.5 mg/dL (1.6-2.6); Potassium 3.1 mmol/L (3.5-5.1); Sodium 130 mmol/L (136-145)
[2020-12-15 07:40] LABS: Hemoglobin 10.6 g/dL (12.0-16.0); Mean Corpuscular HGB CONC 29.5 g/dL (32.0-36.0); Mean Corpuscular Hemoglobin 22.3 pg (27.0-31.0); Mean Corpuscular Volume 75.7 fL (78.0-98.0); Mean Platelet Volume 7.7 fL (7.4-10.4); Platelet Count 512 thou/uL (130-400); RBC Distribution Width 19.3 % (11.5-14.5); Red Blood Cell (RBC) Count 4.73 mill/uL (4.20-5.40); White Blood Cell (WBC) Count 21.3 thou/uL (4.8-10.8)
[2020-12-15] MEDS: Acetaminophen 325 MG TAB PO PRN ×2 (10:19→19:28)
[2020-12-15] MEDS: Piperacillin/Tazobactam 3.375 GM in Sodium Chloride 0.9% 100 ML IVPB SCH ×2 (10:20→17:34)
[2020-12-15 10:21] LABS: Anisocytosis MODERATE=16-30 cells (100X) (0-5/hpf); Band 2 % (5-11); Hypochromia SLIGHT = 6-15 cells (100X) (0-5/hpf); Lymphocytes 5 % (21-51); MDiff Complete? YES; Monocytes 5 % (0-10); Neutrophil 87 % (42-75); Nucleated RBC 1 % (0); Platelet Morphology Comment Appears Increased; Polychromasia MODERATE = 3-4 cells (100X) (0-2/hpf); Reactive Lymphocytes 1 % (0-10)
[2020-12-15] MEDS: methylPREDNISolone Sod Succ 40 MG VIAL IVP SCH ×3 (11:57→23:21)
[2020-12-15] MEDS: HYDROcodone/Acetaminophen 5/325 mg Tablet PO PRN ×2 (11:57→21:02)
[2020-12-15] MEDS: Lidocaine 5% Patch TD SCH (15:54)
[2020-12-15] MEDS: Gabapentin 300 MG CAP PO SCH ×2 (15:55→19:29)
[2020-12-15] MEDS ORDERED: Guaifenesin DM 100-10/5 ML UDCUP PO PRN (18:17)
[2020-12-15] MEDS ORDERED: Magnesium Sulfate 3 GM in Sodium Chloride 0.9% 100 ML IVPB SCH (18:30)
[2020-12-15] MEDS: Potassium Chloride 20 MEQ in Premix Bag 1 BAG IVPB SCH ×2 (19:26→21:49)
[2020-12-15] MEDS ORDERED: rOPINIRole HCl 0.5 MG TAB PO SCH (21:00)
[2020-12-15] MEDS: Transdermal Patch Removal TOP SCH (21:04)
[2020-12-15 21:24] LABS: Legionella Urinary Ag Negative (Negative); Strep pneumo Urine Ag NEGATIVE (NEGATIVE)
[2020-12-15] MEDS: rOPINIRole HCl 0.5 MG TAB PO SCH (21:48)
[2020-12-15] MEDS: Azithromycin 500 MG in Sodium Chloride 0.9% 250 ML 250 ML IVPB SCH (22:02)
[2020-12-16] MEDS: Piperacillin/Tazobactam 3.375 GM in Sodium Chloride 0.9% 100 ML IVPB SCH ×3 (01:36→17:59)
[2020-12-16 04:57] LABS: Anion Gap 12 mmol/L (10-20); BUN (Urea Nitrogen) 6 mg/dL (9.8-20.1); Calc. Creatinine Clearance 109 mL/min (70-130); Calcium 8.6 mg/dL (7.8-10.44); Carbon Dioxide 23 mmol/L (23-31); Chloride 100 mmol/L (98-107); Glucose 127 mg/dL (83-110); Sodium 131 mmol/L (136-145)
[2020-12-16 05:19] LABS: #Lymphocytes 0.7 thou/uL (1.20-3.40); #Monocytes 0.2 thou/uL (0.11-0.59); #Neutrophils 8.8 thou/uL (1.40-6.50); %Basophils 0.3 % (0.0-1.0); %Monocytes 1.6 % (0.0-10.0); %Neutrophils 91.1 % (42.0-75.0); Hemoglobin 7.4 g/dL (12.0-16.0); Mean Corpuscular HGB CONC 29.2 g/dL (32.0-36.0); Mean Corpuscular Hemoglobin 22.3 pg (27.0-31.0); Mean Corpuscular Volume 76.1 fL (78.0-98.0); Mean Platelet Volume 7.6 fL (7.4-10.4); Platelet Count 428 thou/uL (130-400); RBC Distribution Width 19.5 % (11.5-14.5); Red Blood Cell (RBC) Count 3.34 mill/uL (4.20-5.40); White Blood Cell (WBC) Count 9.6 thou/uL (4.8-10.8)
[2020-12-16] MEDS: Levothyroxine Sodium 100 MCG TAB PO SCH (05:59)
[2020-12-16] MEDS: methylPREDNISolone Sod Succ 40 MG VIAL IVP SCH ×2 (05:59→20:30)
[2020-12-16] MEDS: Lidocaine 5% Patch TD SCH (07:40)
[2020-12-16] MEDS: Lisinopril 20 MG TAB PO SCH (07:41)
[2020-12-16] MEDS: Hydrochlorothiazide 25 MG TAB PO SCH (07:42)
[2020-12-16] MEDS: DULoxetine 60 MG CAP PO SCH (07:42)
[2020-12-16] MEDS: Amlodipine 5 MG TAB PO SCH (07:42)
[2020-12-16] MEDS: Calcium Carbonate 600 MG + Vit D TAB PO SCH (07:42)
[2020-12-16] MEDS: Multivit, Therapeutic 1 TAB PO SCH (07:43)
[2020-12-16] MEDS: Gabapentin 300 MG CAP PO SCH ×3 (07:43→20:28)
[2020-12-16] MEDS: HYDROcodone/Acetaminophen 5/325 mg Tablet PO PRN ×4 (07:43→22:10)
[2020-12-16] MEDS ORDERED: Non-Formulary Item 1 EACH (Multivitamin [Multivitamins] 1 CAP Capsule) PO SCH (09:00)
[2020-12-16] MEDS ORDERED: VITAMIN D3 PO SCH (09:00)
[2020-12-16] MEDS ORDERED: Non-Formulary Item 1 EACH (Amlodipine Besylate [Amlodipine Besylate] 2.5 MG Tablet) PO SCH (09:00)
[2020-12-16] MEDS ORDERED: Lisinopril 10 MG TAB PO SCH (09:00)
[2020-12-16] MEDS ORDERED: [UNRECOGNIZED DRUG - OTHER] PO SCH (09:00)
[2020-12-16] MEDS ORDERED: CALCIUM CARBONATE PO SCH (09:00)
[2020-12-16] MEDS: Doxycycline 100 MG CAP PO SCH (20:29)
[2020-12-16] MEDS: rOPINIRole HCl 0.5 MG TAB PO SCH (20:29)
[2020-12-16] MEDS: Transdermal Patch Removal TOP SCH (20:30)
[2020-12-17] MEDS: Acetaminophen 325 MG TAB PO PRN
[2020-12-17] MEDS: Piperacillin/Tazobactam 3.375 GM in Sodium Chloride 0.9% 100 ML IVPB SCH ×2 (02:45→09:06)
[2020-12-17] MEDS: HYDROcodone/Acetaminophen 5/325 mg Tablet PO PRN ×4 (02:49→21:21)
[2020-12-17 04:09] LABS: #Basophils 0.2 thou/uL (0.0-0.2); #Lymphocytes 0.7 thou/uL (1.20-3.40); #Monocytes 0.4 thou/uL (0.11-0.59); #Neutrophils 11.5 thou/uL (1.40-6.50); %Basophils 1.3 % (0.0-1.0); %Eosinophils 0.1 % (0.0-10.0); %Lymphocytes 5.7 % (21.0-51.0); %Monocytes 2.9 % (0.0-10.0); %Neutrophils 90.1 % (42.0-75.0); Anion Gap 11 mmol/L (10-20); BUN (Urea Nitrogen) 10 mg/dL (9.8-20.1); Calc. Creatinine Clearance 100 mL/min (70-130); Calcium 9.1 mg/dL (7.8-10.44); Carbon Dioxide 29 mmol/L (23-31); Chloride 94 mmol/L (98-107); Glucose 121 mg/dL (83-110); Mean Corpuscular HGB CONC 30.5 g/dL (32.0-36.0); Mean Corpuscular Hemoglobin 23.9 pg (27.0-31.0); Mean Corpuscular Volume 78.2 fL (78.0-98.0); Mean Platelet Volume 7.1 fL (7.4-10.4); Platelet Count 402 thou/uL (130-400); Potassium 4.1 mmol/L (3.5-5.1); RBC Distribution Width 19.4 % (11.5-14.5); Red Blood Cell (RBC) Count 2.93 mill/uL (4.20-5.40); Sodium 130 mmol/L (136-145); White Blood Cell (WBC) Count 12.7 thou/uL (4.8-10.8)
[2020-12-17] MEDS: Levothyroxine Sodium 100 MCG TAB PO SCH (05:38)
[2020-12-17] MEDS: methylPREDNISolone Sod Succ 40 MG VIAL IVP SCH (09:06)
[2020-12-17] MEDS: DULoxetine 60 MG CAP PO SCH (09:07)
[2020-12-17] MEDS: Hydrochlorothiazide 25 MG TAB PO SCH (09:07)
[2020-12-17] MEDS: Lisinopril 20 MG TAB PO SCH (09:07)
[2020-12-17] MEDS: Doxycycline 100 MG CAP PO SCH ×2 (09:07→21:22)
[2020-12-17] MEDS: Lidocaine 5% Patch TD SCH (09:08)
[2020-12-17] MEDS: Amlodipine 5 MG TAB PO SCH (09:08)
[2020-12-17] MEDS: Gabapentin 300 MG CAP PO SCH ×3 (09:08→21:22)
[2020-12-17] MEDS: Calcium Carbonate 600 MG + Vit D TAB PO SCH (09:08)
[2020-12-17] MEDS: Multivit, Therapeutic 1 TAB PO SCH (09:08)
[2020-12-17] MEDS: rOPINIRole HCl 0.5 MG TAB PO SCH (21:21)
[2020-12-17] MEDS: Transdermal Patch Removal TOP SCH (21:23)
[2020-12-17] MEDS ORDERED: Morphine 4 MG/ML VIAL SLOW IVP SCH (23:00)
[2020-12-17 23:24] LABS: Troponin I Less than 0.010 ng/mL (< 0.028)
[2020-12-18 04:30] LABS: Anion Gap 13 mmol/L (10-20); BUN (Urea Nitrogen) 16 mg/dL (9.8-20.1); Calc. Creatinine Clearance 104 mL/min (70-130); Calcium 9.2 mg/dL (7.8-10.44); Carbon Dioxide 29 mmol/L (23-31); Chloride 91 mmol/L (98-107); Glucose 92 mg/dL (83-110); Magnesium 1.8 mg/dL (1.6-2.6); Potassium 4.3 mmol/L (3.5-5.1); Sodium 129 mmol/L (136-145)
[2020-12-18] MEDS: Levothyroxine Sodium 100 MCG TAB PO SCH (05:03)
[2020-12-18] MEDS: DULoxetine 60 MG CAP PO SCH (08:43)
[2020-12-18] MEDS: predniSONE 20 MG TAB PO SCH (08:43)
[2020-12-18] MEDS: Gabapentin 300 MG CAP PO SCH ×3 (08:43→20:50)
[2020-12-18] MEDS: Hydrochlorothiazide 25 MG TAB PO SCH (08:43)
[2020-12-18] MEDS: Doxycycline 100 MG CAP PO SCH ×2 (08:44→20:50)
[2020-12-18] MEDS: Amlodipine 5 MG TAB PO SCH (08:44)
[2020-12-18] MEDS: Calcium Carbonate 600 MG + Vit D TAB PO SCH (08:44)
[2020-12-18] MEDS: Multivit, Therapeutic 1 TAB PO SCH (08:44)
[2020-12-18] MEDS: Lisinopril 20 MG TAB PO SCH (08:44)
[2020-12-18] MEDS: Lidocaine 5% Patch TD SCH (08:45)
[2020-12-18] MEDS: HYDROcodone/Acetaminophen 5/325 mg Tablet PO PRN ×3 (08:51→20:49)
[2020-12-18 09:18] LABS: Hemoglobin 8.1 g/dL (12.0-16.0); Mean Corpuscular HGB CONC 30.3 g/dL (32.0-36.0); Mean Corpuscular Hemoglobin 23.8 pg (27.0-31.0); Mean Corpuscular Volume 78.7 fL (78.0-98.0); Platelet Count 428 thou/uL (130-400); RBC Distribution Width 19.7 % (11.5-14.5); Red Blood Cell (RBC) Count 3.38 mill/uL (4.20-5.40); White Blood Cell (WBC) Count 14.3 thou/uL (4.8-10.8)
[2020-12-18 09:20] LABS: Band 1 % (5-11); Hypochromia SLIGHT = 6-15 cells (100X) (0-5/hpf); Lymphocytes 5 % (21-51); Monocytes 11 % (0-10); Neutrophil 83 % (42-75); Platelet Morphology Comment Appears Increased; Polychromasia SLIGHT = 2-3 cells (100X) (0-2/hpf)
[2020-12-18 09:21] LABS: MDiff Complete? YES
[2020-12-18] MEDS: GoLYTELY 4,000 ml Bottle PO SCH (17:56)
[2020-12-18] MEDS: rOPINIRole HCl 0.5 MG TAB PO SCH (20:50)
[2020-12-18] MEDS: Transdermal Patch Removal TOP SCH (20:54)
[2020-12-19] MEDS: Ondansetron PF 4 MG/2 ML Vial IVP PRN ×2 (01:37→15:39)
[2020-12-19 05:00] LABS: Anion Gap 12 mmol/L (10-20); BUN (Urea Nitrogen) 13 mg/dL (9.8-20.1); Calc. Creatinine Clearance 125 mL/min (70-130); Calcium 8.9 mg/dL (7.8-10.44); Carbon Dioxide 33 mmol/L (23-31); Chloride 85 mmol/L (98-107); Glucose 91 mg/dL (83-110); Potassium 3.5 mmol/L (3.5-5.1); Sodium 126 mmol/L (136-145)
[2020-12-19 05:09] LABS: Hemoglobin 8.2 g/dL (12.0-16.0); Mean Corpuscular HGB CONC 30.3 g/dL (32.0-36.0); Mean Corpuscular Hemoglobin 23.6 pg (27.0-31.0); Mean Corpuscular Volume 78.1 fL (78.0-98.0); Mean Platelet Volume 7.2 fL (7.4-10.4); Platelet Count 386 thou/uL (130-400); RBC Distribution Width 21.3 % (11.5-14.5); Red Blood Cell (RBC) Count 3.49 mill/uL (4.20-5.40)
[2020-12-19 05:49] LABS: Anisocytosis SLIGHT = 6-15 cells (100X) (0-5/hpf); Eosinophils 1 % (0-10); Hypochromia SLIGHT = 6-15 cells (100X) (0-5/hpf); Lymphocytes 14 % (21-51); MDiff Complete? YES; Monocytes 17 % (0-10); Neutrophil 68 % (42-75); Nucleated RBC 1 % (0); Polychromasia SLIGHT = 2-3 cells (100X) (0-2/hpf); White Blood Cell (WBC) Count 9.6 thou/uL (4.8-10.8)
[2020-12-19] MEDS: Levothyroxine Sodium 100 MCG TAB PO SCH (05:49)
[2020-12-19] MEDS: Calcium Carbonate 600 MG + Vit D TAB PO SCH (08:39)
[2020-12-19] MEDS: Multivit, Therapeutic 1 TAB PO SCH (08:39)
[2020-12-19] MEDS: predniSONE 20 MG TAB PO SCH (08:40)
[2020-12-19] MEDS: Gabapentin 300 MG CAP PO SCH ×3 (08:40→20:35)
[2020-12-19] MEDS: Doxycycline 100 MG CAP PO SCH ×2 (08:40→20:35)
[2020-12-19] MEDS: Hydrochlorothiazide 25 MG TAB PO SCH (08:40)
[2020-12-19] MEDS: DULoxetine 60 MG CAP PO SCH (08:40)
[2020-12-19] MEDS: Lisinopril 20 MG TAB PO SCH (08:40)
[2020-12-19] MEDS: Amlodipine 5 MG TAB PO SCH (08:40)
[2020-12-19] MEDS: Lidocaine 5% Patch TD SCH (08:41)
[2020-12-19] MEDS: HYDROcodone/Acetaminophen 5/325 mg Tablet PO PRN ×2 (08:41→20:37)
[2020-12-19] MEDS: Sodium Chloride 0.9% 1,000 ML IV SCH (15:38)
[2020-12-19] MEDS: GoLYTELY 4,000 ml Bottle PO SCH (17:44)
[2020-12-19] MEDS: Transdermal Patch Removal TOP SCH (20:35)
[2020-12-19] MEDS: rOPINIRole HCl 0.5 MG TAB PO SCH (20:36)
[2020-12-20 05:18] LABS: Anion Gap 12 mmol/L (10-20); BUN (Urea Nitrogen) 6 mg/dL (9.8-20.1); Calc. Creatinine Clearance 131 mL/min (70-130); Calcium 8.5 mg/dL (7.8-10.44); Carbon Dioxide 35 mmol/L (23-31); Chloride 82 mmol/L (98-107); Glucose 73 mg/dL (83-110); Potassium 3.3 mmol/L (3.5-5.1); Sodium 126 mmol/L (136-145)
[2020-12-20 05:29] LABS: Hemoglobin 8.1 g/dL (12.0-16.0); Mean Corpuscular HGB CONC 31.4 g/dL (32.0-36.0); Mean Corpuscular Hemoglobin 24.3 pg (27.0-31.0); Mean Corpuscular Volume 77.3 fL (78.0-98.0); Mean Platelet Volume 7.2 fL (7.4-10.4); Platelet Count 369 thou/uL (130-400); RBC Distribution Width 21.5 % (11.5-14.5); Red Blood Cell (RBC) Count 3.35 mill/uL (4.20-5.40); White Blood Cell (WBC) Count 7.3 thou/uL (4.8-10.8)
[2020-12-20] MEDS: Levothyroxine Sodium 100 MCG TAB PO SCH (05:36)
[2020-12-20 05:39] LABS: Band 3 % (5-11); Eosinophils 2 % (0-10); Hypochromia SLIGHT = 6-15 cells (100X) (0-5/hpf); Lymphocytes 22 % (21-51); MDiff Complete? YES; Monocytes 11 % (0-10); Neutrophil 62 % (42-75); Platelet Morphology Comment Appears Adequate
[2020-12-20] MEDS ORDERED: Ketamine 50 MG/ML (10ML VIAL) ONE (07:56)
[2020-12-20] MEDS ORDERED: Lidocaine 1% PF 5 ML VIAL ONE (08:01)
[2020-12-20] MEDS ORDERED: PROPOFOL 200 MG/20 ML VIAL ONE (08:01)
[2020-12-20] MEDS: DULoxetine 60 MG CAP PO SCH (11:23)
[2020-12-20] MEDS: Amlodipine 5 MG TAB PO SCH (11:23)
[2020-12-20] MEDS: Doxycycline 100 MG CAP PO SCH ×2 (11:24→20:18)
[2020-12-20] MEDS: Gabapentin 300 MG CAP PO SCH ×3 (11:24→20:18)
[2020-12-20] MEDS: Calcium Carbonate 600 MG + Vit D TAB PO SCH (11:24)
[2020-12-20] MEDS: Multivit, Therapeutic 1 TAB PO SCH (11:24)
[2020-12-20] MEDS: predniSONE 20 MG TAB PO SCH (11:25)
[2020-12-20] MEDS: Lisinopril 20 MG TAB PO SCH (11:25)
[2020-12-20] MEDS: Sodium Chloride 0.9% 1,000 ML IV SCH (11:25)
[2020-12-20] MEDS: Lidocaine 5% Patch TD SCH (11:25)
[2020-12-20] MEDS: HYDROcodone/Acetaminophen 5/325 mg Tablet PO PRN ×2 (13:29→20:19)
[2020-12-20] MEDS: rOPINIRole HCl 0.5 MG TAB PO SCH (20:20)
[2020-12-20] MEDS: Transdermal Patch Removal TOP SCH (21:10)
[2020-12-20] MEDS: Acetaminophen 325 MG TAB PO PRN (22:28)
[2020-12-21] MEDS: HYDROcodone/Acetaminophen 5/325 mg Tablet PO PRN ×4 (00:07→21:41)
[2020-12-21] MEDS: Levothyroxine Sodium 100 MCG TAB PO SCH (04:59)
[2020-12-21] MEDS: Sodium Chloride 0.9% 1,000 ML IV SCH (04:59)
[2020-12-21] MEDS ORDERED: Furosemide 40 MG/4 ML VIAL SLOW IVP SCH (07:45)
[2020-12-21] MEDS: Amlodipine 5 MG TAB PO SCH (08:25)
[2020-12-21] MEDS: predniSONE 5 MG TAB PO SCH (08:25)
[2020-12-21] MEDS: Calcium Carbonate 600 MG + Vit D TAB PO SCH (08:26)
[2020-12-21] MEDS: Doxycycline 100 MG CAP PO SCH ×2 (08:27→21:40)
[2020-12-21] MEDS: DULoxetine 60 MG CAP PO SCH (08:27)
[2020-12-21] MEDS: Gabapentin 300 MG CAP PO SCH ×3 (08:27→21:35)
[2020-12-21] MEDS: Lidocaine 5% Patch TD SCH (08:28)
[2020-12-21] MEDS: Multivit, Therapeutic 1 TAB PO SCH (08:28)
[2020-12-21] MEDS: Lisinopril 20 MG TAB PO SCH (08:28)
[2020-12-21 15:03] VITALS: BMI 32.5
[2020-12-21 15:38] LABS: Hemoglobin 8.5 g/dL (12.0-16.0); Mean Corpuscular HGB CONC 30.9 g/dL (32.0-36.0); Mean Corpuscular Hemoglobin 23.8 pg (27.0-31.0); Mean Platelet Volume 7.7 fL (7.4-10.4); Platelet Count 363 thou/uL (130-400); RBC Distribution Width 21.3 % (11.5-14.5); Red Blood Cell (RBC) Count 3.57 mill/uL (4.20-5.40); White Blood Cell (WBC) Count 9.7 thou/uL (4.8-10.8)
[2020-12-21 15:53] LABS: Anion Gap 11 mmol/L (10-20); BUN (Urea Nitrogen) 6 mg/dL (9.8-20.1); Calc. Creatinine Clearance 122 mL/min (70-130); Calcium 8.9 mg/dL (7.8-10.44); Carbon Dioxide 36 mmol/L (23-31); Chloride 84 mmol/L (98-107); Glucose 130 mg/dL (83-110); Potassium 3.2 mmol/L (3.5-5.1); Sodium 128 mmol/L (136-145)
[2020-12-21 16:00] LABS: Anisocytosis MODERATE=16-30 cells (100X) (0-5/hpf); Eosinophils 2 % (0-10); Hypochromia SLIGHT = 6-15 cells (100X) (0-5/hpf); Lymphocytes 9 % (21-51); MDiff Complete? YES; Microcytosis SLIGHT = 6-15 cells (100X) (0-5/hpf); Monocytes 5 % (0-10); Neutrophil 84 % (42-75); Ovalocytes SLIGHT = 2-5 cells (100X) (0-1/hpf); Platelet Morphology Comment Appears Adequate; Polychromasia MODERATE = 3-4 cells (100X) (0-2/hpf)
[2020-12-21] MEDS ORDERED: Potassium Chloride 20 MEQ TAB PO SCH ×2 (16:15→16:45)
[2020-12-21] MEDS: rOPINIRole HCl 0.5 MG TAB PO SCH (21:35)
[2020-12-21] MEDS: Transdermal Patch Removal TOP SCH (21:40)
[2020-12-22 05:12] LABS: #Basophils 0.1 thou/uL (0.0-0.2); #Eosinphils 0.3 thou/uL (0.0-0.7); #Lymphocytes 1.9 thou/uL (1.20-3.40); #Monocytes 1.3 thou/uL (0.11-0.59); #Neutrophils 6.6 thou/uL (1.40-6.50); %Basophils 1.2 % (0.0-1.0); %Eosinophils 3.3 % (0.0-10.0); %Lymphocytes 18.9 % (21.0-51.0); %Monocytes 12.3 % (0.0-10.0); %Neutrophils 64.3 % (42.0-75.0); Hemoglobin 8.6 g/dL (12.0-16.0); Mean Corpuscular HGB CONC 30.7 g/dL (32.0-36.0); Mean Corpuscular Hemoglobin 23.8 pg (27.0-31.0); Mean Corpuscular Volume 77.7 fL (78.0-98.0); Mean Platelet Volume 7.6 fL (7.4-10.4); Platelet Count 361 thou/uL (130-400); RBC Distribution Width 21.5 % (11.5-14.5); Red Blood Cell (RBC) Count 3.61 mill/uL (4.20-5.40); White Blood Cell (WBC) Count 10.2 thou/uL (4.8-10.8)
[2020-12-22 05:32] LABS: Anion Gap 10 mmol/L (10-20); BUN (Urea Nitrogen) 9 mg/dL (9.8-20.1); Calc. Creatinine Clearance 113 mL/min (70-130); Calcium 8.9 mg/dL (7.8-10.44); Carbon Dioxide 34 mmol/L (23-31); Chloride 88 mmol/L (98-107); Glucose 101 mg/dL (83-110); Potassium 3.3 mmol/L (3.5-5.1); Sodium 129 mmol/L (136-145)
[2020-12-22] MEDS: Levothyroxine Sodium 100 MCG TAB PO SCH (05:56)
[2020-12-22] MEDS: HYDROcodone/Acetaminophen 5/325 mg Tablet PO PRN ×2 (08:54→14:31)
[2020-12-22] MEDS: Lisinopril 20 MG TAB PO SCH (08:55)
[2020-12-22] MEDS: Calcium Carbonate 600 MG + Vit D TAB PO SCH (08:55)
[2020-12-22] MEDS: DULoxetine 60 MG CAP PO SCH (08:55)
[2020-12-22] MEDS: Gabapentin 300 MG CAP PO SCH (08:55)
[2020-12-22] MEDS: Multivit, Therapeutic 1 TAB PO SCH (08:56)
[2020-12-22] MEDS: predniSONE 5 MG TAB PO SCH (08:56)
[2020-12-22] MEDS: Amlodipine 5 MG TAB PO SCH (08:56)
[2020-12-22] MEDS: Doxycycline 100 MG CAP PO SCH (08:57)
[2020-12-22] MEDS: Lidocaine 5% Patch TD SCH (08:58)
[2020-12-22] MEDS ORDERED: Furosemide 40 MG/4 ML VIAL SLOW IVP SCH (09:00)
[2020-12-22 12:56] VITALS: BP 140/75; TEMP 97.6
== END 2020-12-22 14:39 | disposition home or self-care (01) | DRG 393 ==
LOC: ERS 13:38 → ONC 15:58 → IMCU/EMU 12-15 02:42 → 2NO 12-17 18:50
PROVIDERS: ADMIT Family Medicine; ATTEND Internal Medicine
PROC: 30233N1 Transfusion of Nonautologous Red Blood Cells into Peripheral Vein, Percutaneous Approach (ICD-10-PCS; principal; 2020-12-14)
PROC: 0DB68ZX Excision of Stomach, Via Natural or Artificial Opening Endoscopic, Diagnostic (ICD-10-PCS; 2020-12-20)
PROC: 0DBK8ZZ Excision of Ascending Colon, Via Natural or Artificial Opening Endoscopic (ICD-10-PCS; 2020-12-20)
PROC: 0DBP8ZX Excision of Rectum, Via Natural or Artificial Opening Endoscopic, Diagnostic (ICD-10-PCS; 2020-12-20)
PROC: 0DB98ZX Excision of Duodenum, Via Natural or Artificial Opening Endoscopic, Diagnostic (ICD-10-PCS; 2020-12-20)
DX: K64.4 Residual hemorrhoidal skin tags (principal); J18.9 Pneumonia, unspecified organism; J96.01 Acute respiratory failure with hypoxia; E87.1 Hypo-osmolality and hyponatremia; J44.1 Chronic obstructive pulmonary disease with (acute) exacerbation; J44.0 Chronic obstructive pulmonary disease with (acute) lower respiratory infection; J98.11 Atelectasis; D50.9 Iron deficiency anemia, unspecified; Z20.822 Contact with and (suspected) exposure to COVID-19; I48.0 Paroxysmal atrial fibrillation; F32.9 Major depressive disorder, single episode, unspecified; I10 Essential (primary) hypertension; E03.9 Hypothyroidism, unspecified; G25.81 Restless legs syndrome; K44.9 Diaphragmatic hernia without obstruction or gangrene; K64.8 Other hemorrhoids; G62.9 Polyneuropathy, unspecified; K59.09 Other constipation; I95.9 Hypotension, unspecified; G89.29 Other chronic pain; M54.9 Dorsalgia, unspecified; F41.9 Anxiety disorder, unspecified; E87.6 Hypokalemia; E83.42 Hypomagnesemia; F39 Unspecified mood [affective] disorder; D12.2 Benign neoplasm of ascending colon; D12.8 Benign neoplasm of rectum; F17.210 Nicotine dependence, cigarettes, uncomplicated; E66.9 Obesity, unspecified; Z68.32 Body mass index [BMI] 32.0-32.9, adult; Z82.49 Family history of ischemic heart disease and other diseases of the circulatory system; Z87.11 Personal history of peptic ulcer disease; Z79.899 Other long term (current) drug therapy; Z79.890 Hormone replacement therapy; Z79.01 Long term (current) use of anticoagulants; Z81.8 Family history of other mental and behavioral disorders; Z90.710 Acquired absence of both cervix and uterus
CPT/HCPCS: 36415; 36430; 71045; 74177; 80048; 80053; 81001; 82274; 82550; 82607; 82728; 82746; 83540; 83550; 83735; 83880; 83930; 83935; 84145; 84300; 84443; 84484; 85014; 85018; 85025; 85046; 85610; 85730; 86850; 86900; 86901; 87040; 87449; 87635; 87899; 88305; 93005; 93010; 94640; 96365; C9113; J0456; J0696; J1940; J2270; J2405; J2543; J2704; J2916; J2920; J3475; J3480; J3490; J7050; J7512; J7620; P9016; Q0163; U0003; U0005

== ENCOUNTER 2021-02-25 17:31 | Outpatient (CLI) | payer MEDICARE ==
[2021-02-25 18:13] LABS: Hemoglobin 13.4 g/dL (12.0-15.5); Mean Corpuscular HGB CONC 33.7 g/dL (32.0-36.0); Mean Corpuscular Hemoglobin 30.1 pg (27.0-33.0); Mean Corpuscular Volume 89.4 fl (81.6-98.3); Mean Platelet Volume 8.8 fl (7.4-10.4); Platelet Count 257 10x3/uL (150-450); RBC Distribution Width 20.3 % (11.5-14.5); Red Blood Cell (RBC) Count 4.45 10x6/uL (3.90-5.03); White Blood Cell (WBC) Count 6.7 10x3/uL (3.5-10.5)
[2021-02-25 18:19] LABS: INR-International Normal Ratio 1.4; PTT 42.7 sec (22.0-33.0); Prothrombin Time 15.3 sec (9.5-12.1)
[2021-02-25 18:25] LABS: Anion Gap 13 mmol/L (10-20); BUN (Urea Nitrogen) 11 mg/dL (9.8-20.1); Calc. Creatinine Clearance 0 mL/min (70-130); Calcium 9.7 mg/dL (7.8-10.44); Carbon Dioxide 31 mmol/L (23-31); Chloride 92 mmol/L (98-107); Glucose 95 mg/dL (83-110); Potassium 3.6 mmol/L (3.5-5.1); Sodium 132 mmol/L (136-145)
== END 2021-02-25 17:32 | disposition home or self-care (01) ==
LOC: LABBT 17:31
PROVIDERS: ATTEND Internal Medicine Cardiovascular Disease
DX: Z01.812 Encounter for preprocedural laboratory examination (principal); I48.91 Unspecified atrial fibrillation
CPT/HCPCS: 80048; 85027; 85610; 85730

== ENCOUNTER 2022-03-02 14:49 | Outpatient (CLI) | payer MEDICARE, OTHER | END 2022-03-02 14:50 | disposition home or self-care (01) | LOC: BICMAMMO 14:49 | PROVIDERS: ATTEND Family Medicine | DX: Z12.31 Encounter for screening mammogram for malignant neoplasm of breast (principal) | CPT/HCPCS: 77063; 77067 ==

== ENCOUNTER 2022-06-05 12:00 | Emergency (ER) | payer OTHER | END 2022-06-05 14:49 | disposition home or self-care (01) | LOC: ERS 12:00 | DX: S00.03XA Contusion of scalp, initial encounter (principal); E03.9 Hypothyroidism, unspecified; I10 Essential (primary) hypertension; F17.200 Nicotine dependence, unspecified, uncomplicated; W06.XXXA Fall from bed, initial encounter; Z79.899 Other long term (current) drug therapy | CPT/HCPCS: 12001; 70450; 72125 ==

== ENCOUNTER 2022-08-22 12:32 | Outpatient (CLI) | payer OTHER | END 2022-08-22 12:33 | disposition home or self-care (01) | LOC: BICULT 12:32 | PROVIDERS: ATTEND Family Medicine | DX: N39.0 Urinary tract infection, site not specified (principal) | CPT/HCPCS: 76770 ==

== ENCOUNTER 2022-12-10 20:48 | Inpatient (IN) | payer OTHER ==
[~2022-12-10 20:48] MED LIST changes: -Glycopyrrolate 0.2 MG/ML 5 ML SYRINGE ONE; +Iopamidol 370 76% 100 ML VIAL ONE
[2022-12-10 21:42] LABS: Hemoglobin 13.2 g/dL (12.0-16.0); Mean Corpuscular HGB CONC 33.7 g/dL (32.0-36.0); Mean Corpuscular Hemoglobin 32.4 pg (27.0-31.0); Mean Corpuscular Volume 95.9 fl (78.0-98.0); Mean Platelet Volume 7.6 fL (7.4-10.4); Platelet Count 238 10x3/uL (130-400); RBC Distribution Width 12.2 % (11.5-14.5); Red Blood Cell (RBC) Count 4.07 mill/uL (4.20-5.40)
[2022-12-10 22:00] LABS: Actual Bicarbonate (HCO3v) 26.3 mEq/L (22-28); Base Excess 1.9 mEq/L (-2.0 to +3.0); Calcium, Ionized (venous) 1.17 mmol/L (1.16-1.32); Chloride (VBG) 92 mmol/L (98-106); Hematocrit-VBG 39 % (36.0-47.0); Hemoglobin (Hb) 13.3 g/dL (11.7-16.1); Potassium (VBG) 3.47 mmol/L (3.70-5.30); Sodium 127.9 mmol/L (133-146)
[2022-12-10 22:02] LABS: ALT (SGPT) 10 U/L (8-55); AST (SGOT) 22 U/L (5-34); Albumin 3.7 g/dL (3.4-4.8); Alkaline Phosphatase 87 U/L (40-110); Anion Gap 16 mmol/L (10-20); BUN (Urea Nitrogen) 24 mg/dL (9.8-20.1); Bilirubin, Total 0.7 mg/dL (0.2-1.2); Calc. Creatinine Clearance 0 mL/min (70-130); Carbon Dioxide 24 mmol/L (23-31); Chloride 91 mmol/L (98-107); Estimated GFR 56; Globulin 3.2 g/dL (2.4-3.5); Glucose 86 mg/dL (83-110); Potassium 3.1 mmol/L (3.5-5.1); Protein, Total 6.9 g/dL (5.8-8.1); Sodium 128 mmol/L (136-145)
[2022-12-10] MEDS ORDERED: Cefepime 2 GM VIAL ONE (22:15)
[2022-12-10] MEDS ORDERED: Acetaminophen 500 MG TAB ONE (22:15)
[2022-12-10 22:26] LABS: Band 2 % (5-11); Large Platelets SLIGHT (None Seen); Lymphocytes 10 % (21-51); MDiff Complete? YES; Monocytes 6 % (0-10); Neutrophil 82 % (42-75); Platelet Morphology Comment Appears Adequate; RBC Morphology Within Normal Limits
[2022-12-10 23:02] LABS: Bacteria/HPF Rare-Few HPF (None Seen); Bilirubin Negative (Negative); Blood, Urine Negative (Negative); Clarity Clear (Clear); Glucose, Urine (Dipstick) Normal (Negative); Ketone, Urine 10 mg/dL (Negative); Leukocyte 250 Leu/uL (Negative); Nitrite Negative (Negative); Protein, Urine (Dipstick) Negative (Neg-Trace); RBC/HPF 0-3 HPF (0-3); Specific Gravity, Urine 1.013 (1.002-1.036); Squamous Epithelial 0-3 HPF (0-3); Urobilinogen Normal mg/dL (Less than 2); pH, Urine 6.5 (5.0-9.0)
[2022-12-11] MEDS ORDERED: Ondansetron PF 4 MG/2 ML Vial IVP PRN (00:36)
[2022-12-11] MEDS ORDERED: Acetaminophen 325 MG TAB PO PRN (01:15)
[2022-12-11] MEDS: metroNIDAZOLE 500 MG in Premix Bag 1 BAG IVPB SCH ×4 (03:37→22:36)
[2022-12-11] MEDS: Sodium Chloride 0.9% 1,000 ML IV SCH ×2 (03:37→13:52)
[2022-12-11 04:16] VITALS: BMI 31.8
[2022-12-11 04:42] LABS: #Eosinphils 0.2 thou/uL (0.0-0.7); #Lymphocytes 1.3 thou/uL (1.20-3.40); #Monocytes 1.1 thou/uL (0.11-0.59); #Neutrophils 6.8 thou/uL (1.40-6.50); %Basophils 0.5 % (0.0-1.0); %Eosinophils 1.8 % (0.0-10.0); %Lymphocytes 13.6 % (21.0-51.0); %Monocytes 11.8 % (0.0-10.0); %Neutrophils 72.3 % (42.0-75.0); Hemoglobin 11.8 g/dL (12.0-16.0); Mean Corpuscular HGB CONC 32.8 g/dL (32.0-36.0); Mean Corpuscular Volume 97.5 fl (78.0-98.0); Mean Platelet Volume 7.5 fL (7.4-10.4); Platelet Count 222 10x3/uL (130-400); White Blood Cell (WBC) Count 9.4 10x3/uL (4.8-10.8)
[2022-12-11 05:01] LABS: Anion Gap 15 mmol/L (10-20); BUN (Urea Nitrogen) 20 mg/dL (9.8-20.1); Calc. Creatinine Clearance 79 mL/min (70-130); Calcium 9.2 mg/dL (7.8-10.44); Carbon Dioxide 23 mmol/L (23-31); Chloride 95 mmol/L (98-107); Estimated GFR 80; Glucose 83 mg/dL (83-110); Potassium 2.9 mmol/L (3.5-5.1); Sodium 130 mmol/L (136-145)
[2022-12-11] MEDS ORDERED: Electrolyte Replacement Protocol 1 EACH FS SCH (07:30)
[2022-12-11] MEDS ORDERED: Electrolyte Replacement Protocol FS PRN (07:45)
[2022-12-11] MEDS ORDERED: Potassium Chloride 20 MEQ TAB PO SCH (08:00)
[2022-12-11] MEDS ORDERED: Potassium Chloride 40 MEQ in Premix Bag 1 BAG IVPB SCH (08:00)
[2022-12-11] MEDS ORDERED: Famotidine/PF 20 mg/2ml Vial SLOW IVP SCH (09:00)
[2022-12-11] MEDS ORDERED: GoLYTELY 4,000 ml Bottle PO SCH (12:45)
[2022-12-11] MEDS: Gabapentin 300 MG CAP PO SCH ×2 (16:32→20:43)
[2022-12-11] MEDS: Famotidine 20 MG TAB PO SCH (20:43)
[2022-12-11] MEDS: rOPINIRole HCl 1 MG TAB PO SCH (22:35)
[2022-12-11] MEDS: Acetaminophen 325 MG TAB PO PRN (22:36)
[2022-12-12] MEDS: Levothyroxine Sodium 100 MCG TAB PO SCH (04:24)
[2022-12-12] MEDS: metroNIDAZOLE 500 MG in Premix Bag 1 BAG IVPB SCH ×4 (04:25→20:52)
[2022-12-12 05:26] LABS: Chloride 95 mmol/L (98-107); Potassium 3.7 mmol/L (3.5-5.1); Sodium 130 mmol/L (136-145)
[2022-12-12 05:27] LABS: Calcium 8.7 mg/dL (7.8-10.44)
[2022-12-12 05:28] LABS: Carbon Dioxide 18 mmol/L (23-31)
[2022-12-12 05:29] LABS: Anion Gap 21 mmol/L (10-20)
[2022-12-12 05:31] LABS: BUN (Urea Nitrogen) Less than 4 mg/dL (9.8-20.1); Calc. Creatinine Clearance 95 mL/min (70-130); Estimated GFR 92
[2022-12-12 05:34] LABS: Glucose 19 mg/dL (83-110); Magnesium Less than 0.6 mg/dL (1.6-2.6)
[2022-12-12] MEDS ORDERED: Dextrose 50% Abboject 50 ML SYRINGE SLOW IVP SCH (05:40)
[2022-12-12] MEDS ORDERED: Dextrose 50% Abboject 50 ML SYRINGE SLOW IVP PRN (05:41)
[2022-12-12] MEDS ORDERED: Magnesium 2 GM/50 ML(in water) 2 GM in Premix Bag 1 BAG IVPB SCH (05:45)
[2022-12-12 06:42] LABS: #Eosinphils 0.2 thou/uL (0.0-0.7); #Lymphocytes 0.9 thou/uL (1.20-3.40); #Monocytes 0.8 thou/uL (0.11-0.59); #Neutrophils 5.3 thou/uL (1.40-6.50); %Basophils 0.6 % (0.0-1.0); %Eosinophils 2.3 % (0.0-10.0); %Lymphocytes 12.8 % (21.0-51.0); %Monocytes 10.9 % (0.0-10.0); %Neutrophils 73.4 % (42.0-75.0); Hemoglobin 12.6 g/dL (12.0-16.0); Mean Corpuscular HGB CONC 32.8 g/dL (32.0-36.0); Mean Corpuscular Hemoglobin 31.9 pg (27.0-31.0); Mean Corpuscular Volume 97.2 fl (78.0-98.0); Mean Platelet Volume 7.3 fL (7.4-10.4); Platelet Count 269 10x3/uL (130-400); RBC Distribution Width 12.1 % (11.5-14.5); Red Blood Cell (RBC) Count 3.95 mill/uL (4.20-5.40); White Blood Cell (WBC) Count 7.2 10x3/uL (4.8-10.8)
[2022-12-12] MEDS ORDERED: Magnesium Sulfate In Water 4 GM in Premix Bag 1 BAG IVPB SCH (08:00)
[2022-12-12] MEDS: Gabapentin 300 MG CAP PO SCH ×3 (08:10→20:51)
[2022-12-12] MEDS ORDERED: PROPOFOL 200 MG/20 ML VIAL ONE (10:18)
[2022-12-12] MEDS ORDERED: Lidocaine 1% PF 5 ML VIAL ONE (10:18)
[2022-12-12] MEDS ORDERED: Ondansetron HCl/PF 4 MG/2 ML Vial IVP PRN (10:51)
[2022-12-12] MEDS ORDERED: Promethazine HCl 25 MG/ML VIAL IM PRN (10:51)
[2022-12-12 12:57] LABS: Magnesium 2.8 mg/dL (1.6-2.6)
[2022-12-12] MEDS: Acetaminophen 325 MG TAB PO PRN ×2 (15:04→20:51)
[2022-12-12] MEDS: Famotidine 20 MG TAB PO SCH (20:51)
[2022-12-12] MEDS: rOPINIRole HCl 1 MG TAB PO SCH (20:51)
[2022-12-13] MEDS: Levothyroxine Sodium 100 MCG TAB PO SCH (04:16)
[2022-12-13] MEDS: metroNIDAZOLE 500 MG in Premix Bag 1 BAG IVPB SCH ×2 (04:17→14:07)
[2022-12-13 04:42] LABS: #Basophils 0.1 thou/uL (0.0-0.2); #Eosinphils 0.3 thou/uL (0.0-0.7); #Monocytes 0.9 thou/uL (0.11-0.59); #Neutrophils 3.1 thou/uL (1.40-6.50); %Basophils 0.9 % (0.0-1.0); %Eosinophils 4.7 % (0.0-10.0); %Lymphocytes 18.9 % (21.0-51.0); %Monocytes 16.2 % (0.0-10.0); %Neutrophils 56.9 % (42.0-75.0); Hemoglobin 11.1 g/dL (12.0-16.0); Mean Corpuscular HGB CONC 33.2 g/dL (32.0-36.0); Mean Corpuscular Volume 93.3 fl (78.0-98.0); Mean Platelet Volume 9.3 fL (7.4-10.4); Platelet Count 244 10x3/uL (130-400); RBC Distribution Width 12.6 % (11.5-14.5); Red Blood Cell (RBC) Count 3.58 mill/uL (4.20-5.40); White Blood Cell (WBC) Count 5.5 10x3/uL (4.8-10.8)
[2022-12-13 05:09] LABS: Anion Gap 8 mmol/L (10-20); BUN (Urea Nitrogen) 5 mg/dL (9.8-20.1); Calc. Creatinine Clearance 114 mL/min (70-130); Calcium 8.6 mg/dL (7.8-10.44); Carbon Dioxide 30 mmol/L (23-31); Chloride 95 mmol/L (98-107); Estimated GFR 97; Glucose 90 mg/dL (83-110); Potassium 3.2 mmol/L (3.5-5.1); Sodium 130 mmol/L (136-145)
[2022-12-13] MEDS ORDERED: Magnesium 2 GM/50 ML(in water) 2 GM in Premix Bag 1 BAG IVPB SCH (08:00)
[2022-12-13] MEDS ORDERED: Potassium Chloride 20 MEQ TAB PO SCH (08:00)
[2022-12-13] MEDS: Gabapentin 300 MG CAP PO SCH ×2 (09:12→16:05)
[2022-12-13 16:19] VITALS: BP 141/68; TEMP 98.3
== END 2022-12-13 17:35 | disposition home or self-care (01) | DRG 394 ==
LOC: ERS 20:48 → 2SW 12-11 00:36 → OBSVTOIN 12-12 15:27
PROVIDERS: ADMIT Hospitalist; ATTEND Family Medicine
PROC: 0DBP8ZZ Excision of Rectum, Via Natural or Artificial Opening Endoscopic (ICD-10-PCS; principal; 2022-12-12)
PROC: 0DBN8ZX Excision of Sigmoid Colon, Via Natural or Artificial Opening Endoscopic, Diagnostic (ICD-10-PCS; 2022-12-12)
DX: K55.9 Vascular disorder of intestine, unspecified (principal); E87.1 Hypo-osmolality and hyponatremia; I10 Essential (primary) hypertension; I48.0 Paroxysmal atrial fibrillation; E03.9 Hypothyroidism, unspecified; E87.6 Hypokalemia; K63.5 Polyp of colon; K64.8 Other hemorrhoids; Z79.890 Hormone replacement therapy; Z79.899 Other long term (current) drug therapy
CPT/HCPCS: 36415; 36416; 70450; 74174; 80048; 80053; 81003; 81015; 82805; 83605; 83735; 85025; 86850; 86900; 86901; 87040; 87086; 87324; 87449; 88305; 93005; 93010; 96361; 96365; J0692; J0744; J2704; J3475; J3480; J7050; J7999; Q9967; S0028

== ENCOUNTER 2023-10-02 12:01 | Outpatient (CLI) | payer OTHER | END 2023-10-02 12:02 | disposition home or self-care (01) | LOC: BICMAMMO 12:01 | PROVIDERS: ATTEND Family Medicine | DX: Z12.31 Encounter for screening mammogram for malignant neoplasm of breast (principal) | CPT/HCPCS: 77063; 77067 ==

== ENCOUNTER 2024-07-23 13:52 | Outpatient (CLI) | payer OTHER | END 2024-07-23 13:53 | disposition home or self-care (01) | LOC: MRI 13:52 | PROVIDERS: ATTEND Family Medicine | DX: M54.16 Radiculopathy, lumbar region (principal); M47.814 Spondylosis without myelopathy or radiculopathy, thoracic region; M48.04 Spinal stenosis, thoracic region; M48.07 Spinal stenosis, lumbosacral region; Z98.1 Arthrodesis status | CPT/HCPCS: 72148 ==

== ENCOUNTER 2025-02-05 13:47 | Outpatient (CLI) | payer MEDICARE | END 2025-02-05 13:48 | disposition home or self-care (01) | LOC: BICRAD 13:47 | PROVIDERS: ATTEND Neurological Surgery | DX: M47.812 Spondylosis without myelopathy or radiculopathy, cervical region (principal); Z98.890 Other specified postprocedural states | CPT/HCPCS: 72040 ==